=== PATIENT | male | born 1940 | race Two or more races ===

== ENCOUNTER 2020-11-06 12:12 | Outpatient (CLI) | payer OTHER | END 2020-11-06 12:19 | disposition home or self-care (01) | LOC: RAD 12:12 | PROVIDERS: ATTEND Internal Medicine | DX: I10 Essential (primary) hypertension (principal); E78.89 Other lipoprotein metabolism disorders; N41.8 Other inflammatory diseases of prostate; E03.8 Other specified hypothyroidism; E11.9 Type 2 diabetes mellitus without complications; M10.271 Drug-induced gout, right ankle and foot; N41.0 Acute prostatitis; M54.5 Low back pain; M10.30 Gout due to renal impairment, unspecified site; Z01.810 Encounter for preprocedural cardiovascular examination; E11.51 Type 2 diabetes mellitus with diabetic peripheral angiopathy without gangrene; E55.9 Vitamin D deficiency, unspecified ==

== ENCOUNTER → 2021-03-05 | Emergency (ER) | payer OTHER ==
[~2021-03-05] VITALS: Ht 177.8 cm; Wt 89.8 kg
[~2021-03-05] MED LIST: DICLOFENAC SODI75 MG PO
== END | disposition home or self-care (01) ==
LOC: ER 17:59
DX: M77.8 Other enthesopathies, not elsewhere classified (principal); M25.522 Pain in left elbow

== ENCOUNTER 2021-03-26 15:34 | Outpatient (CLI) | payer OTHER | END 2021-03-26 15:44 | disposition home or self-care (01) | LOC: RAD 15:34 | PROVIDERS: ATTEND Orthopaedic Surgery | DX: M25.561 Pain in right knee (principal); M25.562 Pain in left knee ==

== ENCOUNTER 2021-04-19 08:21 | Outpatient (CLI) | payer OTHER | END 2021-04-19 08:23 | disposition home or self-care (01) | LOC: SONOGRAMA 08:21 | PROVIDERS: ATTEND Specialist/Technologist, Other Nephrology | DX: R10.9 Unspecified abdominal pain (principal); N18.30 Chronic kidney disease, stage 3 unspecified; R31.9 Hematuria, unspecified ==

== ENCOUNTER 2021-06-03 14:29 | Outpatient (CLI) | payer OTHER | END 2021-06-03 14:30 | disposition home or self-care (01) | LOC: LAB 14:29 | PROVIDERS: ATTEND Orthopaedic Surgery | DX: E55.9 Vitamin D deficiency, unspecified (principal); M85.9 Disorder of bone density and structure, unspecified; E56.1 Deficiency of vitamin K ==

== ENCOUNTER 2021-09-07 13:35 | Outpatient (CLI) | payer OTHER | END 2021-09-07 13:44 | disposition home or self-care (01) | LOC: RAD 13:35 | PROVIDERS: ATTEND Orthopaedic Surgery | DX: M25.561 Pain in right knee (principal); M25.562 Pain in left knee ==

== ENCOUNTER 2021-09-10 11:53 | Outpatient (CLI) | payer OTHER | END 2021-09-10 12:02 | disposition home or self-care (01) | LOC: MRI 11:53 | PROVIDERS: ATTEND Orthopaedic Surgery | DX: S83.200A Bucket-handle tear of unspecified meniscus, current injury, right knee, initial encounter (principal) | CPT/HCPCS: 73721 ==

== ENCOUNTER 2021-11-18 13:33 | Outpatient (CLI) | payer OTHER | END 2021-11-18 13:41 | disposition home or self-care (01) | LOC: TOM 13:33 | PROVIDERS: ATTEND Internal Medicine Pulmonary Disease | DX: R05.9 Cough, unspecified (principal); R06.02 Shortness of breath ==

== ENCOUNTER → 2022-12-01 13:04 | Outpatient (CLI) | payer OTHER ==
[~2022-12-01 13:04] MED LIST changes: +METFORMIN HCL500 M4 PO
== END | disposition home or self-care (01) ==
LOC: LAB 13:04
DX: R15.9 Full incontinence of feces (principal)

== ENCOUNTER 2022-12-26 08:40 | Outpatient (CLI) | payer OTHER | END 2022-12-26 08:48 | disposition home or self-care (01) | LOC: RX STUDY 08:40 | PROVIDERS: ATTEND Internal Medicine Gastroenterology | DX: R10.13 Epigastric pain (principal); R13.0 Aphagia ==

== ENCOUNTER 2023-01-06 12:02 | Outpatient (CLI) | payer OTHER | END 2023-01-06 12:07 | disposition home or self-care (01) | LOC: SONOGRAMA 12:02 | PROVIDERS: ATTEND Internal Medicine Rheumatology | DX: M65.812 Other synovitis and tenosynovitis, left shoulder (principal) ==

== ENCOUNTER 2023-04-14 05:28 | Emergency (ER) | payer OTHER ==
[~2023-04-14] VITALS: Ht 175.3 cm; Wt 87.1 kg
[2023-04-14 08:24] LABS: URINE APPEARANCE Clear; URINE BILIRRUBIN Negative (NEGATIVE); URINE BLOOD Small; URINE COLOR Yellow; URINE GLUCOSE Negative (NEGATIVE); URINE LEUKOCYTE Negative; URINE NITRATE Negative; URINE PROTEIN Negative (NEGATIVE)
[2023-04-14 08:27] LABS: URINE BACTERIA 129.7 uL (0.0-1933); URINE EPITHELIAL CELLS 8.6 uL (0.0-38.8); URINE RBC 23.8 uL (0.0-20.8); URINE WBC 5.2 uL (0.0-23.2)
[2023-04-14 08:34] LABS: HEMATOCRIT 43.8 % (39.0-48.0); HEMOGLOBIN 15.4 g/dL (13-16.00); MEAN CELL VOLUME 93.8 fL (80.0-100.00); MEAN CORPUSCULAR HGB CONC 35.2 g/dl (32.0-36.0); PLATELET COUNT 155 K/uL (150-450); RED BLOOD COUNT 4.67 M/uL (4.00-6.00); RED CELL DISTRIBUTION WIDTH 14.1 % (11.5-14.5)
[2023-04-14 08:45] LABS: CALCIUM 10.4 mg/dL (8.5-10.1); CREATININE SERUM 1.43 mg/dL (0.70-1.30); GFR 47.46; POTASSIUM 4.44 mEq/L (3.5-5.1)
== END 2023-04-14 09:56 | disposition home or self-care (01) ==
LOC: ER
PROVIDERS: General Practice
DX: U07.1 COVID-19 (principal)

== ENCOUNTER 2023-12-29 21:14 | Emergency (ER) | payer OTHER ==
[~2023-12-29] VITALS: Ht 175.3 cm; Wt 86.6 kg
[~2023-12-29 21:14] MED LIST changes: +ATORVASTATIN CA10 MG PO; +ATORVASTATIN CA20 MG PO; +B-COMPLEX WITH1 EAC2 PO; +BETANATE15 GM TOP; +CLOTRIMAZOLE45 G1 TOP; +GLUMETZA500 MG; +OMEGA-31000 MG PO; +ZYLOPRIM100 M1 PO
[2023-12-29] MEDS ORDERED: CEFTRIAXONE SODIUM 1,000 MG VIAL IM STA (22:26)
== END 2023-12-29 23:03 | disposition home or self-care (01) ==
LOC: ER 21:15
DX: R53.81 Other malaise (principal); K05.10 Chronic gingivitis, plaque induced
CPT/HCPCS: 96372; 99282; J0696

== ENCOUNTER 2024-07-02 15:20 | Outpatient (CLI) | payer OTHER | END 2024-07-02 15:28 | disposition home or self-care (01) | LOC: RAD 15:20 | PROVIDERS: ATTEND Podiatrist Foot Surgery | DX: M77.31 Calcaneal spur, right foot (principal); M77.32 Calcaneal spur, left foot ==

== ENCOUNTER 2024-09-19 09:13 | Outpatient (CLI) | payer OTHER | END 2024-09-19 09:16 | disposition home or self-care (01) | LOC: SONOGRAMA 09:13 | PROVIDERS: ATTEND Internal Medicine Nephrology | DX: K76.0 Fatty (change of) liver, not elsewhere classified (principal) ==

== ENCOUNTER 2025-01-13 10:06 | Outpatient (CLI) | payer OTHER ==
[2025-01-21] MEDS ORDERED: ALOPURINOL PO (12:44)
== END 2025-01-13 10:07 | disposition home or self-care (01) ==
LOC: NUCLEAR 10:06
PROVIDERS: ATTEND Orthopaedic Surgery
DX: M81.0 Age-related osteoporosis without current pathological fracture (principal)